=== PATIENT | female | born 1985 | race Caucasian/White ===

== ENCOUNTER 2017-09-02 11:16 | Emergency (ER) | payer OTHER ==
--- NOTE | 2017-09-02 11:42 | ER Document Report ---
ED Medical Screen (RME) - General Chief Complaint: Headache Stated Complaint: HEADACHE Time Seen by Provider: 09/02/17 11:41 Notes: Patient states she has had several days of headaches that start in the bilateral occipital region and extending to the frontal region. She states with these headaches she will get vision changes in her right eye as well as right sided paresthesias. She states this lasts about an hour. TRAVEL OUTSIDE OF THE [place] IN LAST 30 DAYS: No - Related Data Allergies/Adverse Reactions: morphine Adverse Reaction (Verified 09/02/17 11:39) Generalized Itching Past Medical History - Social History Chew tobacco use (# tins/day): No Frequency of alcohol use: Occasional Drug Abuse: Marijuana Renal/ Medical History: Denies: Hx Peritoneal Dialysis Past Surgical History: Reports: Hx Gynecologic Surgery - D & C Physical Exam - Vital signs Vitals: Temp Pulse Resp BP Pulse Ox 98.1 F 74 16 114/76 100 09/02/17 11:26 09/02/17 11:26 09/02/17 11:26 09/02/17 11:26 09/02/17 11:26 Course - Vital Signs Vital signs: Temp Pulse Resp BP Pulse Ox 98.1 F 74 16 114/76 100 09/02/17 11:26 09/02/17 11:26 09/02/17 11:26 09/02/17 11:26 09/02/17 11:26
[2017-09-02 12:01] LABS: APPEARANCE,URINE CLEAR; BILIRUBIN,URINE NEGATIVE (NEGATIVE); COLOR,URINE COLORLESS; GLUCOSE, URINE NEGATIVE (NEGATIVE); KETONES,URINE NEGATIVE (NEGATIVE); LEUKOCYTE ESTERASE,URINE NEGATIVE (NEGATIVE); NITRITE,URINE NEGATIVE (NEGATIVE); PROTEIN,URINE NEGATIVE (NEGATIVE); URINE SPECIFIC GRAVITY 1.002; UROBILINOGEN,URINE NEGATIVE mg/dL (<2.0)
--- NOTE | 2017-09-02 12:05 | RADIOLOGY REPORT (SQ) ---
EXAM DESCRIPTION: CT HEAD WITHOUT COMPLETED DATE/TIME: 09/02/2017 11:51 am REASON FOR STUDY: agosto/left eye vision changes COMPARISON: None. TECHNIQUE: Axial images acquired through the brain without intravenous contrast. Images reviewed wi th bone, brain and subdural windows. Images stored on PACS. All CT scanners at this facility use dose modulation, iterative reconstruction, and/or weight based d osing when appropriate to reduce radiation dose to as low as reasonably achievable (ALARA). [facility]: Dose Right [facility]: CareDose [facility]: Dose Right [facility]: Teradose 4D [facility]: Smart Technologies RADIATION DOSE: mGy. LIMITATIONS: None. FINDINGS: VENTRICLES: Normal size and contour. CEREBRUM: No masses. No hemorrhage. No midline shift. No evidence for acute infarction. Normal gra y/white matter differentiation. No areas of low density in the white matter. CEREBELLUM: No masses. No hemorrhage. No alteration of density. No evidence for acute infarction. EXTRAAXIAL SPACES: No fluid collections. No masses. ORBITS AND GLOBE: No intra- or extraconal masses. Normal contour of globe without masses. CALVARIUM: No fracture. PARANASAL SINUSES: No fluid or mucosal thickening. SOFT TISSUES: No mass or hematoma. OTHER: No other significant finding. IMPRESSION: NORMAL BRAIN CT WITHOUT CONTRAST. EVIDENCE OF ACUTE STROKE: NO. COMMENT: Quality ID # 436: Final reports with documentation of one or more dose reduction techniques (e.g., Automated exposure control, adjustment of the mA and/or kV according to patient size, use of iterative reconstruction technique) TECHNICAL DOCUMENTATION: JOB ID: [id number] [employer].- All Rights Reserved Reading location - IP/workstation name: [email or web address]
--- NOTE | 2017-09-02 13:19 | ER Document Report ---
ED Headache - General Chief Complaint: Headache Stated Complaint: HEADACHE Time Seen by Provider: 09/02/17 11:41 Mode of Arrival: Ambulatory Information source: Patient Notes: 32 yo female thursday at 2400 developed sudden onset of bilateral poasterior occipital headache radiated to frontal within seconds 5/5,then right side of face went numb, right arm felt "funky", and seeing dots and circles in vision with sound and light sensitivity. Then fell asleep. Similar incident happened again today at 10:30 am, stood up to get something out of the car, SAME scenarioa of symtpoms, HERRMANN only lasts a few minutes, then the numbness and wiggly -loss of peripheral vision. Dots and spots resolved. Now has normal HERRMANN feeling now, left orbital 1.5/5. . No anticoagulants. NO hx miograines. 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 LMP: 08-20-2107. Travels alot, [place]. TRAVEL OUTSIDE OF THE [place] IN LAST 30 DAYS: No - Related Data Allergies/Adverse Reactions: morphine Adverse Reaction (Verified 09/02/17 11:39) Generalized Itching Past Medical History - General Information source: Patient - Social History Smoking Status: Never Smoker Chew tobacco use (# tins/day): No Frequency of alcohol use: Occasional Drug Abuse: Marijuana Lives with: Family, Spouse/Significant other Family History: Reviewed & Not Pertinent Patient has suicidal ideation: No Patient has homicidal ideation: No - Medical History Medical History: Negative Renal/ Medical History: Denies: Hx Peritoneal Dialysis Surgical Hx: Negative Past Surgical History: Reports: Hx Gynecologic Surgery - D & C Review of Systems - Review of Systems Constitutional: No symptoms reported EENT: No symptoms reported Cardiovascular: No symptoms reported Respiratory: No symptoms reported Gastrointestinal: No symptoms reported Genitourinary: No symptoms reported Female Genitourinary: No symptoms reported Musculoskeletal: No symptoms reported Skin: No symptoms reported Hematologic/Lymphatic: No symptoms reported Neurological/Psychological: See HPI Physical Exam - Vital signs Vitals: Temp Pulse Resp BP Pulse Ox 98.1 F 74 16 114/76 100 09/02/17 11:26 09/02/17 11:26 09/02/17 11:26 09/02/17 11:26 09/02/17 11:26 Interpretation: Normal - General General appearance: Appears well, Alert - HEENT Head: Normocephalic, Atraumatic Eyes: Normal Pupils: PERRL - Respiratory Respiratory status: No respiratory distress Chest status: Nontender Breath sounds: Normal Chest palpation: Normal - Cardiovascular Rhythm: Regular Heart sounds: Normal auscultation Murmur: No - Abdominal Inspection: Normal Distension: No distension Bowel sounds: Normal Tenderness: Nontender Organomegaly: No organomegaly - Back Back: Normal, Nontender - Extremities General upper extremity: Normal inspection, Nontender, Normal color, Normal ROM , Normal temperature General lower extremity: Normal inspection, Nontender, Normal color, Normal ROM , Normal temperature, Normal weight bearing. No: Brannon's sign - Neurological Neuro grossly intact: Yes Cognition: Normal Orientation: AAOx4 [place] Coma Scale Eye Opening: Spontaneous [place] Coma Scale Verbal: Oriented [place] Coma Scale Motor: Obeys Commands [place] Coma Scale Total: 15 Speech: Normal Motor strength normal: LUE, RUE, LLE, RLE Sensory: Normal - Psychological Associated symptoms: Normal affect, Normal mood - Skin Skin Temperature: Warm Skin Moisture: Dry Skin Color: Normal Skin irregularity: negative: Rash Course - Re-evaluation Re-evalutation: 09/02/17 16:35 back for radiology and spinal tap. NO headache, but when she coughs she feels HERRMANN across /. 09/02/17 17:00 Cell count tube 1 and tube 4 have no RBCs. The protein and glucose are normal. - Vital Signs Vital signs: Temp Pulse Resp BP Pulse Ox 99.0 F 74 16 105/62 97 09/02/17 18:08 09/02/17 18:08 09/02/17 18:08 09/02/17 18:08 09/02/17 18:08 Discharge - Discharge Clinical Impression: Headache Qualifiers: Headache type: unspecified Headache chronicity pattern: acute headache Intractability: not intractable Qualified Code(s): R51 - Headache Condition: Good Disposition: HOME, SELF-CARE Instructions: Acetaminophen, Antinausea Medication ([facility]), Headache ([facility]), Post Lumbar Puncture ([facility]) Additional Instructions: rest today and tomorrow, no heavy lifting return to the ER if any worsening or new symptoms drink 2 liters water for next 2 days tylenol for headache zofran for nausea. see neurologist if you have persistant headaches do not go to [facility] if you have a headache. Prescriptions: Ondansetron HCl [Zofran 4 mg Tablet] 1 - 2 tab PO Q4H PRN #20 tablet PRN Reason: Referrals: SOLOMON BLANDON MD [NO LOCAL MD] - Follow up as needed
--- NOTE | 2017-09-02 16:08 | RADIOLOGY REPORT (SQ) ---
EXAM DESCRIPTION: LUMBAR PUNCTURE; FLUORO/NEEDLE PLACEMENT/SPINE COMPLETED DATE/TIME: 09/02/2017 3:58 pm REASON FOR STUDY: LP under flouroscopy, sudden onset HERRMANN 5/5; HERRMANN COMPARISON: CT brain 09/02/2017 FLUOROSCOPY TIME: 17 seconds 2 digital radiographic images saved to PACS. TECHNIQUE: Fluoroscopic guided lumbar puncture. LIMITATIONS: None. PROCEDURE: After written consent and assessment were obtained, the patient was brought into the fluo roscopy room and placed prone on the table. The patient's lower back was prepped in a sterile fashio n and an entry site was selected under live fluoroscopic guidance. The entry site was anesthetized wi th 4 mL of 1% lidocaine. A 22 gauge spinal needle was advanced through the skin and into the thecal s ac at the left paracentral L2-3 level. After approximately 8 ml was drained, the needle was removed and a sterile bandage was placed of the site. Specimens were sent to the lab for testing. A fluoros copic spot image was saved to PACS confirming level access. FINDINGS: Clear CSF, normal opening pressure of 25 cm water IMPRESSION: Lumbar puncture under fluoroscopy. No immediate complication. Fluid analysis pending COMMENT: Patient medication list reviewed: Yes- Quality ID# [id number]:Eligible professional attests to doc umenting in the medical record they obtained, updated, or reviewed the patient's current medications. . Quality ID 145: Final reports for procedures using fluoroscopy that document radiation exposure mark kesha, or exposure time and number of fluorographic images (if radiation exposure indices are not avail able) TECHNICAL DOCUMENTATION: JOB ID: [id number] [employer]- All Rights Reserved Reading location - IP/workstation name: [facility]RR
--- NOTE | 2017-09-02 16:08 | RADIOLOGY REPORT (SQ) ---
EXAM DESCRIPTION: LUMBAR PUNCTURE; FLUORO/NEEDLE PLACEMENT/SPINE COMPLETED DATE/TIME: 09/02/2017 3:58 pm REASON FOR STUDY: LP under flouroscopy, sudden onset HERRMANN 5/5; HERRMANN COMPARISON: CT brain 09/02/2017 FLUOROSCOPY TIME: 17 seconds 2 digital radiographic images saved to PACS. TECHNIQUE: Fluoroscopic guided lumbar puncture. LIMITATIONS: None. PROCEDURE: After written consent and assessment were obtained, the patient was brought into the fluo roscopy room and placed prone on the table. The patient's lower back was prepped in a sterile fashio n and an entry site was selected under live fluoroscopic guidance. The entry site was anesthetized wi th 4 mL of 1% lidocaine. A 22 gauge spinal needle was advanced through the skin and into the thecal s ac at the left paracentral L2-3 level. After approximately 8 ml was drained, the needle was removed and a sterile bandage was placed of the site. Specimens were sent to the lab for testing. A fluoros copic spot image was saved to PACS confirming level access. FINDINGS: Clear CSF, normal opening pressure of 25 cm water IMPRESSION: Lumbar puncture under fluoroscopy. No immediate complication. Fluid analysis pending COMMENT: Patient medication list reviewed: Yes- Quality ID# [id number]:Eligible professional attests to doc umenting in the medical record they obtained, updated, or reviewed the patient's current medications. . Quality ID 145: Final reports for procedures using fluoroscopy that document radiation exposure mark kesha, or exposure time and number of fluorographic images (if radiation exposure indices are not avail able) TECHNICAL DOCUMENTATION: JOB ID: [id number] [employer]- All Rights Reserved Reading location - IP/workstation name: [facility]-[email or web address]
[2017-09-02 16:37] LABS: APPEARANCE ALL TUBES CLEAR; COLOR ALL TUBES COLORLESS; CSF TUBE NUMBER 1
[2017-09-02 16:38] LABS: RED BLOOD CELL,CSF 0 /uL (0-10); WHITE BLOOD CELL,CSF 1 /uL (0-5)
[2017-09-02 16:44] LABS: APPEARANCE ALL TUBES CLEAR; COLOR ALL TUBES COLORLESS; CSF TUBE NUMBER 4
[2017-09-02 16:45] LABS: RED BLOOD CELL,CSF 0 /uL (0-10); WHITE BLOOD CELL,CSF 1 /uL (0-5)
[2017-09-02 16:46] LABS: GLUCOSE,CSF 55 mg/dL (40-70); PROTEIN,CSF 35 mg/dL (12-60)
[2017-09-02 18:10] VITALS: BP 105/62
== END 2017-09-02 18:12 | disposition home or self-care (01) ==
LOC: ER 11:16
DX: R51 Headache (principal); R20.0 Anesthesia of skin; H53.8 Other visual disturbances; H53.149 Visual discomfort, unspecified
CPT/HCPCS: 62270; 70450; 77003; 81001; 81025; 82945; 84157; 87070; 87205; 89050; 99284

== ENCOUNTER 2017-11-07 11:46 | Emergency (ER) | payer OTHER ==
[2017-11-07] MEDS ORDERED: ONDANSETRON 4 MG TAB.RAPDIS PO ONE (12:17)
--- NOTE | 2017-11-07 12:19 | ER Document Report ---
ED Medical Screen (RME) - General Chief Complaint: Nausea/Vomiting Stated Complaint: VOMITTING Time Seen by Provider: 11/07/17 12:13 Notes: RAPID MEDICAL EVALUATION DISCLOSURE I have seen this patient as part of a Rapid Medical Evaluation and, if applicable, placed any initially appropriate orders. The patient will be seen and fully evaluated, including a full history and physical exam, by a provider ( in Main ED or Fast Track) when a room becomes available. 32-year-old female approximately 11 weeks gestation sent here by her OB/ LIGHTING TECHNICIAN for nausea vomiting. This is been ongoing throughout her entire and she has these symptoms with every . She has been trying to drink mar tea but unable to keep it down. Her CODING COMPLIANCE AUDITOR has not prescribed her any antiemetic and the patient does not know why. EXAM CTAB RRR TRAVEL OUTSIDE OF THE [place] IN LAST 30 DAYS: No - Related Data Allergies/Adverse Reactions: morphine Adverse Reaction (Verified 09/02/17 11:39) Generalized Itching Past Medical History Renal/ Medical History: Denies: Hx Peritoneal Dialysis Past Surgical History: Reports: Hx Gynecologic Surgery - D & C Physical Exam - Vital signs Vitals: Temp Pulse Resp BP Pulse Ox 98.8 F 83 18 117/60 100 11/07/17 11:56 11/07/17 11:56 11/07/17 11:56 11/07/17 11:56 11/07/17 11:56 Course - Vital Signs Vital signs: Temp Pulse Resp BP Pulse Ox 98.8 F 83 18 117/60 100 11/07/17 11:56 11/07/17 11:56 11/07/17 11:56 11/07/17 11:56 11/07/17 11:56
--- NOTE | 2017-11-07 13:33 | ER Document Report ---
ED General - General Chief Complaint: Nausea/Vomiting Stated Complaint: VOMITTING Time Seen by Provider: 11/07/17 12:13 TRAVEL OUTSIDE OF THE [place] IN LAST 30 DAYS: No - Related Data Allergies/Adverse Reactions: morphine Adverse Reaction (Verified 11/07/17 12:18) Generalized Itching Past Medical History - Social History Smoking Status: Never Smoker Chew tobacco use (# tins/day): No Frequency of alcohol use: None Drug Abuse: None Family History: Reviewed & Not Pertinent Patient has suicidal ideation: No Patient has homicidal ideation: No Renal/ Medical History: Denies: Hx Peritoneal Dialysis Past Surgical History: Reports: Hx Gynecologic Surgery - D & C Review of Systems - Review of Systems Notes: See history of present illness for pertinent positive review of systems; otherwise all review of systems have been reviewed and are negative Physical Exam - Vital signs Vitals: Temp Pulse Resp BP Pulse Ox 98.8 F 83 18 117/60 100 11/07/17 11:56 11/07/17 11:56 11/07/17 11:56 11/07/17 11:56 11/07/17 11:56 - Notes Notes: PHYSICAL EXAMINATION: GENERAL: Well-appearing and in no acute distress. HEAD: Atraumatic, normocephalic. EYES: Pupils equal round and reactive to light, extraocular movements intact, sclera anicteric, conjunctiva are normal. ENT: nares patent, oropharynx clear without exudates. Moist mucous membranes. NECK: Normal range of motion, supple without lymphadenopathy LUNGS: CTAB and equal. No wheezes rales or rhonchi. HEART: Regular rate and rhythm without murmurs ABDOMEN: Soft, no tenderness. No facial grimacing/wincing upon palpation. No guarding, no rebound. EXTREMITIES: Normal range of motion, no pitting edema. No cyanosis. NEUROLOGICAL: Cranial nerves grossly intact. Normal sensory/motor exams. PSYCH: Normal mood, normal affect. SKIN: Warm, Dry, normal turgor, no rashes or lesions noted Course - Re-evaluation Re-evalutation: 11/07/17 13:32 MEDICAL DECISION MAKING: Patient is not clinically dehydrated based on exam Nausea has nearly resolved with ODT Zofran We will prescribe Zofran ODT and, as a last resort, Phenergan suppository Instructed follow-up PCP next day or few Patient understands and agrees to the plan of care - Vital Signs Vital signs: Temp Pulse Resp BP Pulse Ox 98.8 F 83 18 117/60 100 11/07/17 11:56 11/07/17 11:56 11/07/17 11:56 11/07/17 11:56 11/07/17 11:56 Discharge - Discharge Clinical Impression: Vomiting affecting Condition: Good Disposition: HOME, SELF-CARE Additional Instructions: You were seen in the emergency department at [facility]. Try the Zofran, FIRST, for vomiting. If this does not work, try the Phenergan suppositories SECOND however please note that this will make you sleepy. Please followup with your primary physician in the next few days for further management/evaluation. Please return to the emergency department for worsening of symptoms or any symptom that you deem to be concerning or life-threatening. Thank you for allowing us to be part of your care. Prescriptions: Ondansetron [Zofran Odt 4 mg Tablet] 1 tab PO Q4H PRN #15 tab.rapdis PRN Reason: For Nausea/Vomiting Promethazine HCl [Phenergan 25 mg Supp.rect] 1 supp MI Q6H #12 supp.rect
[2017-11-07 13:49] VITALS: BP 122/68
== END 2017-11-07 13:37 | disposition home or self-care (01) ==
LOC: ER 11:46
DX: O21.9 Vomiting of pregnancy, unspecified (principal); Z3A.00 Weeks of gestation of pregnancy not specified
CPT/HCPCS: 99283; S0119